=== PATIENT | male | born 1945 | race Caucasian/White ===

== ENCOUNTER 2017-04-26 14:37 | Emergency (ER) | payer OTHER ==
[~2017-04-26] VITALS: Ht 185.4 cm; Wt 88.6 kg
[2017-04-26] MEDS ORDERED: MORPHINE SULFATE 4 MG/ML INJ IV PUSH ONE (14:45)
[2017-04-26] MEDS ORDERED: ONDANSETRON HCL 4 MG/2 ML VIAL IV PUSH ONE (14:45)
[2017-04-26 14:55] VITALS: BP 167/91; PULSE 84; RESP 16; O2SAT 98
--- NOTE | 2017-04-26 14:59 | PD ---
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 He states that he was reaching for something in his car when he felt the hip pop. 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 Symptoms started just prior to arrival, right hip, no radiation, context as above PFSH Past Medical History Narrative Medical Hypertension, diabetes. Past Surgical History Narrative Surgical Hip replacement and revision on right. Social History Tobacco Use: No Allergies-Medications (Allergen,Severity, Reaction): Coded Allergies: No Known Allergies (Unverified , 04/26/17) Review of Systems Except as stated in HPI: all other systems reviewed are Neg Physical Exam Narrative GENERAL: patient is laying in bed in no obvious distress. SKIN: Warm and dry. HEAD: Atraumatic. Normocephalic. EYES: Pupils equal and round. No scleral icterus. No injection or drainage. ENT: No nasal bleeding or discharge. Mucous membranes pink and moist. NECK: Trachea midline. No JVD. CARDIOVASCULAR: Regular rate and rhythm. RESPIRATORY: No accessory muscle use. Clear to auscultation. Breath sounds equal bilaterally. GASTROINTESTINAL: Abdomen soft, non-tender, nondistended. Hepatic and splenic margins not palpable. MUSCULOSKELETAL: Extremities without clubbing, cyanosis, or edema. R leg is shortened and internally rotated. 2+ equal pulses present in all 4 extremities. Pulses motor and sensory intact in bilateral lower extremity's. NEUROLOGICAL: Awake and alert. No obvious cranial nerve deficits. Motor grossly within normal limits. Five out of 5 muscle strength in the arms and legs. Normal speech. PSYCHIATRIC: Appropriate mood and affect; insight and judgment normal. Data Data Last Documented VS Vital Signs Date Time Temp Pulse Resp B/P (MAP) Pulse Ox O2 Delivery O2 Flow Rate FiO2 04/26/17 17:39 74 16 145/81 (102) 99 04/26/17 16:05 4.00 Orders Orders Hip, Uni(Ap&Lat) Wo Ap Pelvis (04/26/17 ) Iv Access Insert/Monitor (04/26/17 14:45) Morphine Inj (Morphine Inj) (04/26/17 14:45) Ondansetron Inj (Zofran Inj) (04/26/17 14:45) Etomidate Inj (Amidate Inj) (04/26/17 16:00) Etomidate Inj (Amidate Inj) (04/26/17 15:57) Immobilizer Knee 20 Inch (04/26/17 ) Hip, Ap Only Wo Ap Pelvis (04/26/17 ) Ed Discharge Order (04/26/17 16:47) [facility] Medical Decision Making Medical Screen Exam Complete: Yes Emergency Medical Condition: Yes Differential Diagnosis Posterior hip dislocation, R KATHRYN, Diabetes, Peripheral neuropathy Narrative Course Patient roomed in emergency department, x-ray confirmed dislocation of his right artificial hip. Patient after informed consent consented to conscious sedation and closed reduction which was performed in the emergency department, pulse motor and sensory confirmed after reduction. Patient will be discharged home to follow-up with his orthopedist in [place]. Procedures Procedure Narrative After formal written consent was performed including discussions all risks benefits competitions and alternatives of both the sedation and the reduction the patient sign formal consent and the following procedures were performed. Time out was performed confirming patient identity prior to the following procedures. PROCEDURAL SEDATION: The patient was administered 10 mg of etomidate to the left antecubital IV site, after patient had adequate anesthesia the reduction was performed. Patient was monitored for a total of 10 minutes by myself at the bedside until he had return of consciousness. No apnea and no hypotension was seen during the reduction and he had no untoward event. Left in the care of nursing. ORTHOPEDIC REDUCTION: Procedure was performed with myself and Killian Rogers MS 4 at the bedside using standard traction countertraction method. Pulse motor and sensory were intact before and after the reduction. Patient was placed in a knee immobilizer. Tolerated the procedure well. Diagnosis Primary Impression: Hip dislocation, right Qualified Codes: S73.004A - Unspecified dislocation of right hip, initial encounter Disposition: 01 DISCHARGE HOME Condition: Stable Leon Rosales MD Apr 26, 2017 14:59
--- NOTE | 2017-04-26 15:47 | RADRPT ---
EXAM DATE/TIME: 04/26/2017 15:12 [facility] COMPARISON: No previous studies available for comparison. INDICATIONS : Right hip pain. Severe right hip pain after bending over today. MEDICAL HISTORY : None. SURGICAL HISTORY : Bilateral hip replacements. ENCOUNTER: Initial ACUITY: 1 day PAIN SCORE: 10/10 LOCATION: Right hip. FINDINGS: A two view examination of the right hip was performed. The patient had a total hip arthroplasty with dislocation of the femoral head component superiorly CONCLUSION: Dislocation of the femoral head arthroplasty component. Higinio Escalante MD on April 26, 2017 at 15:44 Board Certified Radiologist. This report was verified electronically.
[2017-04-26] MEDS ORDERED: ETOMIDATE 40 MG/20 ML VIAL ONE (15:57)
[2017-04-26] MEDS ORDERED: ETOMIDATE 40 MG/20 ML VIAL IV PUSH ONE (16:00)
[2017-04-26 16:05] VITALS: O2SAT 99
--- NOTE | 2017-04-26 17:16 | RADRPT ---
EXAM DATE/TIME: 04/26/2017 16:28 [facility] COMPARISON: HIP RIGHT (AP&LAT 2/3VWS) WO AP PELVIS, April 26, 2017, 15:12. INDICATIONS : Post reduction right hip. MEDICAL HISTORY : None. SURGICAL HISTORY : Right hip replacement. ENCOUNTER: Subsequent ACUITY: 1 day PAIN SCORE: 1/10 LOCATION: Right hip. FINDINGS: A single frontal view of the hip reveals a total hip prosthesis in good position on this single proje ction. No fracture or dislocation appreciated. Soft tissues are unremarkable. CONCLUSION: 1. Successful reduction of the dislocation. Rex Barger Jr., MD on April 26, 2017 at 17:13 Board Certified Radiologist. This report was verified electronically.
[2017-04-26 17:39] VITALS: BP 145/81
== END 2017-04-26 17:55 | disposition home or self-care (01) ==
LOC: NEPE 14:37
DX: M24.451 Recurrent dislocation, right hip (principal); E11.9 Type 2 diabetes mellitus without complications; I10 Essential (primary) hypertension; Z96.641 Presence of right artificial hip joint
CPT/HCPCS: 27265; 73501; 73502; 96374; 96375; 99285; J2270; J2405; L1830